=== PATIENT | female | born 1955 | race Caucasian/White ===

== ENCOUNTER → 2016-07-12 | Outpatient (CLI) | payer OTHER ==
--- NOTE | 2016-07-12 15:23 | RAD ---
APPROVED REPORT Patient Location : OUT-PATIENT Indications VENOUS INSUFICIENCY Deep System Deep Venous Thrombosis present : No Deep Venous Reflux present : No Findings Bilateral Ray scale images of the great saphenous vein, lesser saphenous vein and saphenofemoral junc tions do not reveal any evidence of thrombus. The spectral waveforms do not demonstrate any evidence of significant reflux. Critical Notification Critical Value: No <Conclusion> Negative for reflux in the bilateral greater and lesser saphenous veins.
--- NOTE | 2016-07-12 16:01 | RAD ---
APPROVED REPORT Bilateral Lower Extremity Venous Study for DVT Patient Location: OUT-PATIENT Indications VENOUS INSUFFICIENCY Findings Bilateral grayscale images of the deep venous system extending from the common femoral vein to the be low-knee veins was performed bilaterally. No obvious evidence of thrombosis is noted. All the vesse ls appear to be compressible. Color Doppler reveals normal phasic waveforms. No significant normali ties noted on spectral imaging. Overall, negative for a DVT. Critical Notification Critical Value: No <Conclusion> No evidence of deep venous thrombosis in the bilateral lower extremity venous vessels.
== END | disposition home or self-care (01) ==
LOC: US 12:58
PROVIDERS: ATTEND Internal Medicine Cardiovascular Disease
DX: I87.2 Venous insufficiency (chronic) (peripheral) (principal)
CPT/HCPCS: 93970